=== PATIENT | female | born 1970 | race Caucasian/White ===

== ENCOUNTER 2016-11-21 08:04 | Day surgery (SDC) | payer OTHER ==
[2016-11-15 11:30] VITALS: BMI 34.1
[~2016-11-21 08:04] MED LIST: GABAPENTIN 300 MG CAPSULE (FP) PO ONE
[2016-11-21] MEDS ORDERED: oxyCODONE HCL 10 MG SUSTAINED ACTING TABLET PO STA (08:43)
[2016-11-21] MEDS ORDERED: CEFAZOLIN 2 GM in DEXTROSE 5%-WATER - 100 ML IVPB ONE (08:43)
[2016-11-21] MEDS ORDERED: KETOROLAC TROMETHAMINE 30 MG/1 ML VIAL ONE (08:45)
[2016-11-21] MEDS ORDERED: ceFAZolin SODIUM 1 GM VIAL ONE (08:45)
[2016-11-21] MEDS ORDERED: ONDANSETRON 4 MG/2 ML VIAL ONE (08:45)
[2016-11-21] MEDS ORDERED: DEXAMETHASONE SOD PHOSPHATE 4 MG/1 ML VIAL ONE ×2 (08:45→11:17)
[2016-11-21] MEDS ORDERED: MIDAZOLAM HCL 2 MG/2 ML SINGLE DOSE VIAL ONE ×4 (08:45→11:52)
[2016-11-21] MEDS ORDERED: GABAPENTIN 300 MG CAPSULE (FP) ONE (08:48)
[2016-11-21] MEDS ORDERED: oxyCODONE HCL 10 MG SUSTAINED ACTING TABLET ONE (08:48)
[2016-11-21] MEDS ORDERED: methylPREDNISolone ACET (DEPO) 40 MG/1 ML VIAL ONE (09:09)
[2016-11-21] MEDS ORDERED: GUM MASTIC/STORAX/MSAL/ALCOHOL 1 DRP DROPSBTL MC ONE (09:10)
[2016-11-21] MEDS ORDERED: LIDOCAINE 1%-EPI 1:100,000 30 ML MDV IJ ONE (09:10)
[2016-11-21] MEDS ORDERED: BUPIVACAINE HCL/PF 2.5 MG/ML - 30 ML VIAL IJ ONE (09:10)
[2016-11-21] MEDS ORDERED: THROMBIN (BOVINE) 5,000 UNIT VIAL TP ONE ×2 (09:10→10:55)
--- NOTE | 2016-11-21 09:11 | HP ---
History & Physical Update - History History: No Change - Physical Physical: No Change - Assessment Assessment: No Change - Plan Plan: No Change (This is the first time I have met the patient. Informed her that I, or another member of [employer] will be assisting Dr. Walters during the procedure today. Patient is fine with that.)
[2016-11-21] MEDS ORDERED: ONDANSETRON 4 MG/2 ML VIAL IVPUSH PRN (10:05)
[2016-11-21] MEDS ORDERED: oxyCODONE HCL 5 MG TABLET PO PRN (10:05)
[2016-11-21] MEDS ORDERED: LIDOCAINE HCL 1%, 10 MG/ML (50 mL VIAL) IJ ONE (10:10)
[2016-11-21] MEDS ORDERED: LACTATED RINGERS SOLUTION 1,000 ML IV SCH (10:15)
[2016-11-21] MEDS ORDERED: ePHEDrine SULFATE 50 MG/1 ML AMPULE ONE (11:01)
[2016-11-21] MEDS ORDERED: ACETAMINOPHEN INJECTION 0 ML IVPB ONE (11:47)
[2016-11-21] MEDS ORDERED: methylPREDNISolone ACET (DEPO) 40 MG/1 ML VIAL IM ONE (12:00)
[2016-11-21] MEDS ORDERED: BUPIVACAINE HCL/PF 0.25% (2.5MG/ML) 10 ML VIAL IJ ONE (12:01)
--- NOTE | 2016-11-21 13:00 | OP ---
Operative Note - Note: Operative Date: 11/21/16 Pre-Operative Diagnosis: spinal stenosis Operation: laminectomy of L4-S1, microdisectomy Post-Operative Diagnosis: Same as Pre-op Surgeon: Wale Walters Wall And Floor Tiler: Zunilda Cleary Anesthesiologist/PRODUCT SAFETY SPECIALIST: Edgardo Pedro Anesthesia: Spinal Specimens Removed: disc L4-L5 Estimated Blood Loss (mls): 30 Fluid Volume Replaced (mls): 1,200 Operative Report Dictated: Yes
[2016-11-21] MEDS ORDERED: ACETAMINOPHEN/CAFFEINE/BUTALBITAL 1 TAB PO ONE (13:30)
[2016-11-21] MEDS ORDERED: ACETAMINOPHEN/CAFFEINE/BUTALBITAL 1 TAB ONE (13:33)
[2016-11-21 13:51] VITALS: TEMP 98.4
[2016-11-21 14:27] VITALS: BP 124/74; PULSE 90
--- NOTE | 2016-11-21 15:48 | SURG ---
Surgery Sales Agent Business Services Note Sales Agent Business Services: Zunilda Cleary PA-C Date of Service: 11/21/16 Diagnosis: spinal stenosis Procedure: laminectomy of L4-S1 with microdisectomy I was present for the entirety of the operative procedure. For further detail, please refer to operative report. Visit type - Case Type Case Type: Scheduled Admission - Emergency Emergency Visit: No - New patient This patient is new to me today: Yes Date on this admission: 11/21/16 - Critical Care Critical Care patient: No
--- NOTE | 2016-11-21 15:49 | OP ---
DATE OF OPERATION: 11/21/2016 PREOPERATIVE DIAGNOSIS: Spinal stenosis, L4-5, L5-S1. POSTOPERATIVE DIAGNOSIS: Spinal stenosis, L4-5, L5-S1. PROCEDURE PERFORMED: Laminectomy, L4-5, L5-S1. SURGEON: Wale Walters MD GROUP CONTRACT ANALYST: ABBY Beaulieu ESTIMATED BLOOD LOSS: 50 mL INTRAVENOUS FLUIDS: Per Anesthesia. ANESTHESIA: Spinal. COMPLICATIONS: None. DISPOSITION: Patient brought to PACU in stable condition. INDICATION FOR SURGERY: The patient is a 46-year-old female who has been suffering from pain from her back down her legs. X-rays and MRI were completed which showed that she had a herniated disk at L4-5 and L5-S1, contributing to stenosis at that level. She had gone through an exhaustive course of treatment for this, which included medications, physical therapy as well as injections. Unfortunately, pain continued to persist despite all this. At this point, risks, benefits, and alternatives were discussed, and the patient consented to surgery. DESCRIPTION OF PROCEDURE: Patient was brought to the operating room by the Anesthesia staff. After the appropriate patient identification was performed, spinal anesthesia was given. She was placed prone onto the Prince frame with all areas of bony prominences well padded. At this time, 2 needles were placed into the back to edwin off the L4-S1 segments, and x-ray was taken to confirm this as correct. The needles were removed, and 10 mL of lidocaine with epinephrine was injected into her back at this time. Her back was prepped and draped in a sterile manner. At this point, timeout was completed. An incision was made from the top of L4 down to the bottom of S1. Dissection was carried down to the fascia. Fascia was split open at this time, and appropriate retractors were then placed in. Spinal needle was placed onto the L4-5 lamina. An x-ray was taken to confirm this as correct. The needle was removed, and the microscope was brought in. At this point, the L4-5 and L5-S1 interspinous ligament was removed. The L5 spinous process was removed. A bur was used to complete the laminectomy. The flavum was removed. In removing the flavum, a dural tear was noted. Minor CSF was leaking. The dura was retracted medially. Disk herniation was noted and removed at this time. A patch was placed over the dural tear. Tisseel was placed over that. All bleeding was well controlled at this time. Steroid was placed over the nerve root. FloSeal was placed over that. The fascia was closed with a No. 1 Vicryl suture. The subcutaneous tissues were closed with 2-0 Vicryl suture. Skin was closed with 3 -0 Monocryl suture. Dermabond was applied. Steri-Strips were applied. Sterile dressing applied. Patient was placed supine on the OR bed and brought to the PACU in stable condition. The patient was able to flex and extend toes in the operating room. Denise [id number] MTDD
--- NOTE | 2016-11-25 15:32 | PATH ---
Surgical Pathology Report Patient Name: DEXTER RUTLEDGE [facility]. Rec. #: [id number] /Age/Gender: 1970 (Age: 46) / F Account: [id number] Location: [facility] Taken: 11/21/2016 Received: 11/21/2016 Reported: 11/25/2016 Physicians: Wale Walters M.D. Specimen(s) Received DISC L4-S1 Clinical History Spinal stenosis Final Diagnosis DISC L4-S1, LAMINECTOMY: CARTILAGE WITH DEGENERATIVE CHANGES. Electronically Signed Lacy Lopez M.D. Gross Description Received in formalin labeled "disc L4-S1," is a 2.6 x 2.6 x 0.5 cm aggregate of cronin fragments of fibrocartilaginous tissue. A insurance service representative portion is submitted in one cassette. 11/22/201611/22/2016
== END 2016-11-21 14:10 | disposition home or self-care (01) ==
LOC: FASU 08:04
PROVIDERS: ATTEND Orthopaedic Surgery Orthopaedic Surgery of the Spine
PROC: 01NB0ZZ Release Lumbar Nerve, Open Approach (ICD-10-PCS; principal; 2016-11-21 10:00)
DX: M48.06 Spinal stenosis, lumbar region (principal); M48.07 Spinal stenosis, lumbosacral region
CPT/HCPCS: 84703; 88304-TC; 94760